=== PATIENT | female | born 1985 | race Asian ===

== ENCOUNTER 2017-08-30 04:59 | Emergency (ER) | payer OTHER ==
[~2017-08-30] VITALS: Ht 175.3 cm; Wt 104.3 kg
[2017-08-30] MEDS ORDERED: AMLODIPINE BESYLATE PO (05:08)
[2017-08-30 05:37] LABS: PLATELET COUNT 268 K/uL (152-353)
[2017-08-30 05:44] LABS: POTASSIUM 3.3 mmol/L (3.6-5.2)
[2017-08-30 06:50] VITALS: BP 147/97; TEMP 98.8
== END 2017-08-30 06:54 | disposition home or self-care (01) ==
LOC: ED 04:59
PROVIDERS: Specialist
DX: R07.89 Other chest pain (principal)
CPT/HCPCS: 36415; 80053; 82550; 82553; 84484; 85027; 96374; 99284; J1885; J2060

== ENCOUNTER 2020-10-07 09:57 | Outpatient (CLI) | payer OTHER ==
[~2020-10-07 09:57] MED LIST: AMLODIPINE BESYLATE PO
== END 2020-10-07 19:30 | disposition home or self-care (01) ==
LOC: RAD 09:57
PROVIDERS: ATTEND Nurse Practitioner Family
DX: M54.42 Lumbago with sciatica, left side (principal)

== ENCOUNTER 2021-04-01 09:42 | Outpatient (CLI) | payer OTHER | END 2021-04-01 21:53 | disposition home or self-care (01) | LOC: RAD 09:42 | PROVIDERS: ATTEND Nurse Practitioner Primary Care | DX: U09.9 Post COVID-19 condition, unspecified (principal) ==

== ENCOUNTER 2021-04-05 11:17 | Outpatient (CLI) | payer OTHER ==
[2021-04-05 11:43] LABS: PLATELET COUNT 230 K/uL (152-353)
[2021-04-05 11:57] LABS: POTASSIUM 3.7 mmol/L (3.6-5.2)
== END 2021-04-05 19:16 | disposition home or self-care (01) ==
LOC: LABW 11:17
PROVIDERS: ATTEND Nurse Practitioner Family
DX: Z09 Encounter for follow-up examination after completed treatment for conditions other than malignant neoplasm (principal); Z86.16 Personal history of COVID-19
CPT/HCPCS: 36415; 80053; 82728; 85027; 85379; 86140

== ENCOUNTER 2021-06-27 13:55 | Emergency (ER) | payer OTHER ==
[~2021-06-27] VITALS: Ht 175.3 cm; Wt 122.5 kg
[2021-06-27 14:05] VITALS: TEMP 98.1
[2021-06-27 15:26] VITALS: BP 124/82
== END 2021-06-27 15:27 | disposition home or self-care (01) ==
LOC: ED 13:55
DX: J06.9 Acute upper respiratory infection, unspecified (principal); R09.1 Pleurisy; Z20.822 Contact with and (suspected) exposure to COVID-19
CPT/HCPCS: 87502; 87635; 87651; 93005; 99283; U0003

== ENCOUNTER 2021-06-30 12:07 | Outpatient (CLI) | payer OTHER | END 2021-06-30 20:25 | disposition home or self-care (01) | LOC: CT 12:07 | PROVIDERS: ATTEND Nurse Practitioner Family | DX: U07.1 COVID-19 (principal); Z03.818 Encounter for observation for suspected exposure to other biological agents ruled out | CPT/HCPCS: 36415; 82565; 84520; Q9963 ==

== ENCOUNTER 2021-07-09 11:00 | Outpatient (CLI) | payer OTHER ==
[2021-07-09 11:33] LABS: PLATELET COUNT 258 K/uL (152-353)
[2021-07-09 11:43] LABS: POTASSIUM 3.6 mmol/L (3.6-5.2)
== END 2021-07-09 18:48 | disposition home or self-care (01) ==
LOC: LABW 11:00
PROVIDERS: ATTEND Nurse Practitioner Family
DX: U07.1 COVID-19 (principal)
CPT/HCPCS: 36415; 80053; 85027; 85379

== ENCOUNTER 2021-09-08 16:28 | Emergency (ER) | payer OTHER ==
[~2021-09-08] VITALS: Ht 175.3 cm; Wt 122.5 kg
[2021-09-08 16:31] VITALS: TEMP 98.4
[2021-09-08 16:55] VITALS: BP 163/94
== END 2021-09-08 17:53 | disposition home or self-care (01) ==
LOC: ED 16:28
DX: M17.12 Unilateral primary osteoarthritis, left knee (principal)
CPT/HCPCS: 99282

== ENCOUNTER 2022-05-11 12:26 | Emergency (ER) | payer OTHER ==
[~2022-05-11] VITALS: Ht 175.3 cm; Wt 97.1 kg
[2022-05-11 12:30] VITALS: TEMP 98.3
[2022-05-11 13:03] LABS: PLATELET COUNT 228 K/uL (152-353)
[2022-05-11 13:11] LABS: POTASSIUM 3.7 mmol/L (3.6-5.2); SODIUM 139 mmol/L (136-145)
[2022-05-11 14:30] VITALS: BP 155/98
== END 2022-05-11 15:17 | disposition home or self-care (01) ==
LOC: ED 12:26
PROVIDERS: Emergency Medicine Emergency Medical Services
DX: R09.1 Pleurisy (principal); F14.10 Cocaine abuse, uncomplicated
CPT/HCPCS: 80048; 80307; 81025; 83735; 84484; 85027; 85379; 93005; 96360; 96374; 99284; J2930